=== PATIENT | female | born 1965 | race Caucasian/White ===

== ENCOUNTER 2019-04-04 07:25 | Observation (INO) | payer OTHER ==
[~2019-04-04] VITALS: Ht 165.1 cm; Wt 80.7 kg
[2019-04-04] MEDS ORDERED: SODIUM CHLORIDE 0.9% 1000ML 1,000 ML IV STA (07:26)
[2019-04-04] MEDS ORDERED: CYCLOBENZAPRINE5 MG PO (07:37)
[2019-04-04] MEDS ORDERED: HYDROCHLOROTH12.5 M1 PO (07:37)
[2019-04-04] MEDS ORDERED: ROSUVASTATIN CA20 MG PO (07:37)
[2019-04-04] MEDS ORDERED: CITALOPRAM HBR40 MG PO (07:37)
[2019-04-04] MEDS ORDERED: GABAPENTIN600 MG PO (07:37)
[2019-04-04 07:55] LABS: BASOPHILS # (AUTO) 0.1 (0.0-0.1); BASOPHILS % 0.8 % (0.0-1.0); EOSINOPHILS # (AUTO) 0.2 (0.0-0.4); EOSINOPHILS % 2.7 % (0.0-6.0); HEMATOCRIT 41.2 % (34.2-44.1); HEMOGLOBIN 13.6 g/dL (12.0-16.0); LYMPHOCYTES # (AUTO) 3.1 (1.0-3.2); LYMPHOCYTES % 39.8 % (18.0-39.1); MEAN CORPUSCULAR HEMOGLOBIN 30.4 pg (28-32); MEAN CORPUSCULAR VOLUME 92.2 fL (81-99); MONOCYTES # (AUTO) 0.7 (0.2-0.8); MONOCYTES % 8.5 % (4.4-11.3); NEUTROPHILS # (AUTO) 3.7 (2.1-6.9); NEUTROPHILS % 48.1 % (38.7-80.0); PLATELET COUNT 286 x10e3/uL (140-360); RED BLOOD COUNT 4.47 x10e6/uL (3.6-5.1); RED CELL DISTRIBUTION WIDTH 12.8 % (11.7-14.4)
[2019-04-04 07:58] LABS: BILIRUBIN,URINE NEGATIVE (NEGATIVE); CLARITY,URINE CLEAR (CLEAR); COLOR,URINE YELLOW (YELLOW); KETONES,URINE NEGATIVE (NEGATIVE); LEUKOCYTE ESTERASE ,URINE NEGATIVE (NEGATIVE); NITRITE,URINE NEGATIVE (NEGATIVE); PROTEIN,URINE DIPSTICK NEGATIVE (NEGATIVE); URINE UROBILINOGEN 0.2 mg/dL (0.2 - 1)
[2019-04-04] MEDS ORDERED: KETOROLAC TROMETHAMINE 30 MG/ML VIAL IV ONE (08:00)
[2019-04-04] MEDS ORDERED: ONDANSETRON HCL INJ 2MG/ML 2ML 2 MG/ML VIAL IV ONE (08:00)
[2019-04-04 08:11] LABS: BACTERIA,URINE FEW /HPF; EPITHELIAL CELLS,URINE FEW /LPF; RBC,URINE 0-5 /HPF (0-5)
[2019-04-04 08:25] LABS: ALBUMIN 4.1 g/dL (3.5-5.0); ALBUMIN/GLOBULIN RATIO 1.5 (0.8-2.0); ANION GAP 13.5 mmol/L (8-16); CALCIUM 9.6 mg/dL (8.4-10.2); CREATININE, SERUM 0.97 mg/dL (0.57-1.11); POTASSIUM 3.5 mmol/L (3.5-5.1)
--- NOTE | 2019-04-04 09:12 | Diagnostic Imaging Report ---
EXAM: CT Abdomen and Pelvis WITHOUT intravenous contrast INDICATION: Flank pain COMPARISON: None. TECHNIQUE: Abdomen and pelvis were scanned utilizing a multidetector helical scanner from the lung base to the pubic symphysis without administration of IV contrast. Coronal and sagittal reformations were obtained. IV CONTRAST: None ORAL CONTRAST: Water COMPLICATIONS: None RADIATION DOSE: Total DLP: 425.5 mGy*cm Dose modulation, iterative reconstruction, and/or weight based adjustment of the mA/kV was utilized to reduce the radiation dose to as low as reasonably achievable. FINDINGS: LOWER THORAX: Mild dependent bibasilar subsegmental atelectasis. HEPATOBILIARY: Diffuse hepatic steatosis. Nonspecific hypodense lesion at the hepatic dome (series 3 image 4) is indeterminate but likely represents a cyst. No other focal liver lesions. Status post cholecystectomy. SPLEEN: No splenomegaly. PANCREAS: No focal masses or ductal dilatation. ADRENALS: No adrenal nodules. KIDNEYS/URETERS: Multiple nonobstructive renal calculi at the right kidney lower pole measure up to 4 mm. 2 mm left lower pole nonobstructive renal calculus. No hydronephrosis or hydroureter. No ureteral calculi. A 1.7 cm exophytic posterior left lower pole renal lesion is indeterminate by attenuation on this noncontrast study (25HU). PELVIC ORGANS/BLADDER: Status post hysterectomy. PERITONEUM / RETROPERITONEUM: No free air or fluid. LYMPH NODES: No lymphadenopathy. VESSELS: Unremarkable. GI TRACT: Mild diverticulosis. No CT evidence of diverticulitis. No abnormal bowel thickening. No bowel obstruction. Normal appendix. BONES AND SOFT TISSUES: No acute osseous injury. No suspicious lytic or blastic lesions. IMPRESSION: Multiple nonobstructive right renal calculi measuring up to 4 mm. 2 mm left lower pole nonobstructive renal callus. No hydronephrosis or hydroureter. 1.7 cm exophytic posterior left lower pole renal mass is indeterminate by attenuation. Recommend follow-up renal mass CT or ultrasound on a nonurgent basis for further evaluation. Diffuse hepatic steatosis. Signed by: Butch Tse MD on 04/04/2019 9:08 AM
[2019-04-04] MEDS ORDERED: ONDANSETRON HCL INJ 2MG/ML 2ML 2 MG/ML VIAL IV PRN (09:45)
[2019-04-04] MEDS ORDERED: IBUPROFEN 800 MG/200 ML IV PRN (09:45)
--- OUTSIDE RECORDS SUMMARY | 2019-04-04 10:06 | XMS REPORT ---
Author Author [facility] Address Unknown Phone Unavailable Care Team Providers Care Entry Level Marketing Assistant Name Role Phone Villa THIBODEAUX Unavailable Unavailable Problems This patient has no known problems. Allergies, Adverse Reactions, Alerts This patient has no known allergies or adverse reactions. Medications This patient has no known medications. Results Test Description Test Time Test Comments Text Results Atomic Results Result Comments CT ABDOMEN/PELVIS WO 2019-04-04 09:00:00 [place] [address] Patient Name: CAITLIN AG MR #: [id number] : 1965 Age/Sex: 54/F Req #: [id number] Adm Physician: Ordered by: NELLIE THIBODEAUX MD Report #: [id number] Location: ER Room/Bed: Procedure: [id number] CT/CT ABDOMEN/PELVIS WO Exam Date: Exam Time: REPORT STATUS: Signed EXAM: CT Abdomen and Pelvis WITHOUT intravenous contrast INDICATION: Flank pain COMPARISON: None. TECHNIQUE: Abdomen and pelvis were scanned utilizing a multidetector helical scanner from the lung base to the pubic symphysis without administration of IV contrast. Coronal and sagittal reformations were obtained. IV CONTRAST: None ORAL CONTRAST: Water COMPLICATIONS: None RADIATION DOSE: Total DLP: 425.5 mGy*cm Dose modulation, iterative reconstruction, and/or weight based adjustment of the mA/kV was utilized to reduce the radiation dose to as low as reasonably achievable. FINDINGS: LOWER THORAX: Mild dependent bibasilar subsegmental atelectasis. HEPATOBILIARY: Diffuse hepatic steatosis. Nonspecific hypodense lesion at the hepatic dome (series 3 image 4) is indeterminate but likely represents a cyst. No other focal liver lesions. Status post cholecystectomy. SPLEEN: No splenomegaly. PANCREAS: No focal masses or ductal dilatation. ADRENALS: No adrenal nodules. KIDNEYS/URETERS: Multiple nonobstructive renal calculi at the right kidney lower pole measure up to 4 mm. 2 mm left lower pole nonobstructive renal calculus. No hydronephrosis or hydroureter. No ureteral calculi. A 1.7 cm exophytic posterior left lower pole renal lesion is indeterminate by attenuation on this noncontrast study (25HU). PELVIC ORGANS/BLADDER: Status post hysterectomy. PERITONEUM / RETROPERITONEUM: No free air or fluid. LYMPH NODES: No lymphadenopathy. VESSELS: Unremarkable. GI TRACT: Mild diverticulosis. No CT evidence of diverticulitis. No abnormal bowel t hickening. No bowel obstruction. Normal appendix. BONES AND SOFT TISSUES: No acute osseous injury. No suspicious lytic or blastic lesions. IMPRESSION: Multiple nonobstructive right renal calculi measuring up to 4 mm. 2 mm left lower pole nonobstructive renal callus. No hydronephrosis or hydroureter. 1.7 cm exophytic posterior left lower pole renal mass is indeterminate by attenuation. Recommend follow-up renal mass CT or ultrasound on a nonurgent basis for further evaluation. Diffuse hepatic steatosis. Signed by: Jeffrey Dow MD on 04/04/2019 9:08 AM Dictated By: JEFFREY DOW MD 7 Transcribed By: YARED on 04/04/19907 COPY TO: NELLIE THIBODEAUX MD
--- OUTSIDE RECORDS SUMMARY | 2019-04-04 10:06 | XMS REPORT | Summary of Care ---
Author Author [facility] Organization [facility] Address Unknown Phone Unavailable Care Team Providers Care Coppersmith Helper Name Role Phone Nayla Gardner DO PCP Encounter Details Care Team Description Date Type Department Doctor Unassigned, [place] [address] [place] [address] 11/21/2018 Orders Only [address] [address] Allergies Comments Active Allergy Reactions Severity Noted Date Codeine Hives, Nausea 01/13/2013 and/or Vomiting Sulfa (Sulfonamide Hives 01/13/2013 Antibiotics) documented as of this encounter (statuses as of 12/05/2018) Medications End Date Status Medication Sig Dispensed Refills Start Date Active traMADOL (ULTRAM) 50 mg Take 1-2 90 tablet 0 tabletIndications: tablets by 8 Fibromyalgia, Other mouth every 6 chronic pain (six) hours as needed for Pain unrelieved by non-narcotic analgesics. Active CITALOPRAM 40 mg TAKE ONE 30 tablet 11 tabletIndications: TABLET BY 8 Lumbosacral MOUTH DAILY radiculopathy, Depression Active GABAPENTIN 300 mg TAKE ONE TO 180 capsule 5 capsuleIndications: TWO CAPSULES 8 Fibromyalgia BY MOUTH THREE TIMES DAILY Active tamsulosin 0.4 mg 24 hr Take 1 30 capsule 0 capsuleIndications: capsule by 9 Dysuria mouth daily. Active ketorolac 10 mg Take 1 tablet 20 tablet 0 tabletIndications: Flank by mouth 9 pain, Kidney stone every 6 (six) hours as needed for Pain (scale 7-10) for up to 20 doses. Active proMETHazine 25 mg Take 1 tablet 12 tablet 0 tabletIndications: Flank by mouth 9 pain, Kidney stone every 6 (six) hours as needed for Nausea and Vomiting (N/V). documented as of this encounter (statuses as of 12/05/2018) Active Problems Problem Noted Date Right ureteral stone 08/16/2018 Overview: Added automatically from request for surgery [id number] Immunization counseling 08/21/2017 ALT (SGPT) level raised 08/21/2017 Hyperlipidemia LDL goal <100 07/31/2017 IBS (irritable bowel syndrome) 07/28/2015 HLD (hyperlipidemia) 02/02/2013 Overview: ICD10 Diagnosis Term [employer] Fibromyalgia 01/13/2013 Preventive measure 01/13/2013 Overview: Mammo/DEXA and pap done with Dr. Mehnaz Merlos [phone] Vitamin B12 deficiency 01/13/2013 Vitamin D deficiency 01/13/2013 Family disruption 01/13/2013 History of hypoglycemia 01/13/2013 History of diabetes mellitus, type II 01/13/2013 documented as of this encounter (statuses as of 12/05/2018) Social History Date Tobacco Use Types Packs/Day Years Used Quit: 02/27/2000 Former Smoker Smokeless Tobacco: Never Used Drinks/Week oz/Week Comments Alcohol Use social Yes Sex Assigned at Date Recorded Not on file Industry Job Start Date Occupation Not on file Not on file Not on file Travel End Travel History Travel Start No recent travel history available. documented as of this encounter Last Filed Vital Signs Not on filedocumented in this encounter Plan of Treatment Health Maintenance Due Date Last Done Comments DTaP,Tdap,and Td Vaccines 1985 (1 - Tdap) PAP SMEAR 1987 MAMMOGRAM 2006 COLONOSCOPY 2016 Zoster Recombinant 2016 Vaccine (SHINGRIX) (1 of 2) INFLUENZA VACCINE 01/05/2019 03/06/2016 (Previously completed) PNEUMOCOCCAL 0-64 YEARS Aged Out No longer eligible based COMBINED SERIES on patient's age to complete this topic documented as of this encounter Procedures Comments Procedure Name Priority Date/Time Associated Diagnosis AUTHORIZATION FOR RELEASE Routine 11/21/2018 OF PHI 12:01 AM CDT documented in this encounter Results Not on filedocumented in this encounter Insurance Type Payer Benefit Subscriber ID Effective Phone Address Plan / Dates Group HMO/PPO/POS [facility] [id number] 2013-P HEALTHCARE resent PPO documented as of this encounter
[2019-04-04] MEDS ORDERED: CEFTRIAXONE SOD 1 GM/NS 50 ML 50 ML IV ONE (10:30)
--- NOTE | 2019-04-04 11:28 | NUR ---
Received patient and a/ox3, pleasant female admitted for c/o back pain and history of kidney stones, IV line in place and fluids running, IV abx, running, minimal pain 4/10 at this time and no resp distress, call light within reach and will monitor.
[2019-04-04 11:29] VITALS: BP 109/67
[2019-04-04 11:31] VITALS: BP 119/59
--- NOTE | 2019-04-04 11:53 | NUR ---
Patient signed consent for procedure at this time
[2019-04-04] MEDS: SODIUM CHLORIDE 0.9% 1000ML 1,000 ML IV SCH (11:58)
--- NOTE | 2019-04-04 12:18 | NUR ---
Patient picked up at this time for procedure
[2019-04-04] MEDS ORDERED: TRAMADOL HCL 50 MG TAB PO PRN (13:00)
--- NOTE | 2019-04-04 13:50 | NUR ---
Patient returned from procedure, mild bruising to lower left back, will strain urine at this time, and will monitor.
--- NOTE | 2019-04-04 14:25 | NUR ---
Orders per Dr. Morel for Large Volume paracentesis, IR consult.
[2019-04-04] MEDS ORDERED: ONDANSETRON HCL INJ 2MG/ML 2ML 2 MG/ML VIAL ONE (14:45)
[2019-04-04] MEDS ORDERED: DEXAMETHASONE SOD PHOS INJ 4 MG/ML VIAL ONE (14:45)
[2019-04-04] MEDS ORDERED: LIDOCAINE HCL 2% LOCAL INJ 5 ML SDV VIAL INJ ONE (14:45)
[2019-04-04] MEDS ORDERED: EPHEDRINE SULFATE INJ 50 MG/10 ML SYR ONE (14:45)
[2019-04-04] MEDS ORDERED: PROPOFOL IV EMULSION 10 MG/ML 20 ML VIAL ONE (14:45)
[2019-04-04 16:00] VITALS: BP 106/57
--- NOTE | 2019-04-04 16:00 | Diagnostic Imaging Report ---
EXAM: Renal Ultrasound INDICATION: ^EVALUATE LEFT RENAL MASS NOTED ON CT. ^[id number] ^[id number] COMPARISON: None TECHNIQUE: Transverse and longitudinal images of the kidneys and bladder were obtained. FINDINGS: Right Kidney: Length: 10.6 cm Appearance: Increased echogenicity. Collecting system: No hydronephrosis Stones: 9.6 mm mid pole shadowing calculus. Cyst/Mass: Mid pole anechoic 1.0 x 0.8 x 1.5 cm simple cyst. Left Kidney: Length: 9.4 cm Appearance : Increased echogenicity. Collecting system: No hydronephrosis Stones: None Cyst/Mass: Lower pole cysts with internal septation measure up to 1.6 and 1.7 cm. Bladder: No mass or calculi. Bilateral ureteral jets visualized. Prevoid volume estimate of 203 cc. IMPRESSION: Right midpole 9.6 mm calculus. No right or left hydronephrosis. Increased echogenicity of both kidneys, compatible with medical renal disease. Left lower pole cysts measuring 1.7 and 1.6 cm with internal septation (Bosniak 2). Right midpole anechoic simple cyst. Signed by: Butch Tse MD on 04/04/2019 3:57 PM
--- NOTE | 2019-04-04 16:56 | NUR ---
Patient a/ox3, OOB and ambulating, straining urine, no resp distress, no c/o pains, will monitor.
--- NOTE | 2019-04-04 18:00 | NUR ---
PT TO THE FLOOR WITH VITALS WNL. PT DENIES NEEDS AT THIS TIME.
--- NOTE | 2019-04-04 19:10 | NUR ---
Patient visited in room during nursing rounds. Patient alert and oriented x3. Ambulatory in room prn. S/P Cystoscopy today. Pt c/o having headaches and requesting for pain med. On IVF (NS at 100ml/hr). Call alanis within reach. Will monitor closely.
[2019-04-04] MEDS ORDERED: FENTANYL CITRATE/PF 100MCG/2 ML INJ ONE (19:38)
[2019-04-04] MEDS ORDERED: MIDAZOLAM HCL 2 MG/2 ML VIAL ONE (19:38)
[2019-04-04 20:09] VITALS: BP 101/95
[2019-04-04 23:41] VITALS: BP 94/50
[2019-04-05] MEDS: SODIUM CHLORIDE 0.9% 1000ML 1,000 ML IV SCH (00:29)
[2019-04-05 04:41] VITALS: BP 100/51
[2019-04-05 05:40] LABS: BASOPHILS % 0.1 % (0.0-1.0); HEMATOCRIT 37.3 % (34.2-44.1); HEMOGLOBIN 12.2 g/dL (12.0-16.0); LYMPHOCYTES # (AUTO) 1.7 (1.0-3.2); LYMPHOCYTES % 17.9 % (18.0-39.1); MEAN CORPUSCULAR HEMOGLOBIN 30.2 pg (28-32); MEAN CORPUSCULAR HGB CONC 32.7 g/dL (31-35); MEAN CORPUSCULAR VOLUME 92.3 fL (81-99); MONOCYTES # (AUTO) 0.7 (0.2-0.8); MONOCYTES % 7.6 % (4.4-11.3); NEUTROPHILS # (AUTO) 6.9 (2.1-6.9); PLATELET COUNT 240 x10e3/uL (140-360); RED BLOOD COUNT 4.04 x10e6/uL (3.6-5.1); RED CELL DISTRIBUTION WIDTH 12.7 % (11.7-14.4)
[2019-04-05 06:02] LABS: ANION GAP 11.8 mmol/L (8-16); BLOOD UREA NITROGEN 13 mg/dL (7-26); BUN/CREATININE RATIO 17 (6-25); CALCIUM 8.8 mg/dL (8.4-10.2); CARBON DIOXIDE 25 mmol/L (22-29); CHLORIDE 107 mmol/L (98-107); CREATININE, SERUM 0.75 mg/dL (0.57-1.11); EST GLOMERULAR FILTRATION RATE > 60 ML/MIN (60-); GLUCOSE 112 mg/dL (74-118); POTASSIUM 3.8 mmol/L (3.5-5.1); SODIUM 140 mmol/L (136-145)
--- NOTE | 2019-04-05 07:27 | NUR ---
PATIENT IN BED WITH HEAD ELEVATED WATCHING TV, NO DISTRESS NOTED. IV FLUID INFUSING ORDERED. BED IN LOWER POSITION, CALL LIGHT AT REACH.
[2019-04-05 08:29] VITALS: BP 98/64
--- NOTE | 2019-04-05 11:39 | NUR ---
PATIENT SITTING AT BED TALKING TO FAMILY MEMBER VISITING, NO COMPLAIN VOICED. CALL LIGHT AT EASY REACH.
[2019-04-05 12:15] VITALS: BP 98/58
--- NOTE | 2019-04-05 15:38 | NUR ---
PATIENT AMBULATING IN HALLWAY BY SELF. NO DISTRESS NOTED. WILL CONTINUE TO MONITOR.
[2019-04-05 16:17] VITALS: BP 104/55
[2019-04-05] MEDS ORDERED: ULTRAM50 MG PO (16:43)
--- NOTE | 2019-04-05 17:05 | NUR ---
PATIENT DISCHARGED HOME. DISCHARGE INSTRUCTIONS, PRESCRIPTION, AND FOLLOW UP GIVEN TO PATIENT. SHE VERBALIZED UNDERSTANDING. IV TO RIGHT AC REMOVED WITH TIP INTACT. ALL PERSONAL ITEMS TAKEN WITH PATIENT. REFUSED WHEEL CHAIR, BUT WAS ACCOMPANIED TO FRONT LOBBY BY HOSPITAL STAFF IN STABLE CONDITION.
--- NOTE | 2019-06-17 03:36 | Operative Report ---
DATE OF PROCEDURE: 04/04/2019 SURGEON: James Aldana MD PREOPERATIVE DIAGNOSIS: Right nephrolithiasis. POSTOPERATIVE DIAGNOSIS: Right nephrolithiasis. OPERATIONS PERFORMED: 1. Staged right-sided extracorporeal shockwave lithotripsy. 2. Supervision of fluoroscopy, no radiologist present. ANESTHESIA: General. COMPLICATIONS: None. CLINICAL SUMMARY: Shi Arvizu is a 54-year-old woman with nephrolithiasis. She is brought for lithotripsy. She is aware of the risks of bleeding, infection, injury to adjacent structures, need for additional procedures and elected to proceed. OPERATIVE PROCEDURE IN DETAIL: Informed consent was verified Shi Arvizu was properly identified taken to the operating room, placed on the lithotripsy table in supine position. Anesthesia was uneventfully begun. The patient's right nephrolithiasis was localized with biplanar fluoroscopy. A total of 3000 shocks were delivered, distributing them between all the stones that we were able to visualize. Fragmentation was noted. The patient was then uneventfully reversed from anesthesia and taken to recovery room in stable condition. There were no complications to the procedure. She tolerated the procedure well. Explicit postop instructions were given. Follow the patient up in the office. Plans will also include to admit the patient for observation to ensure adequate pain control postoperatively. James Aldana MD [place]/MODL /[id number] cc: James Aldana MD
== END 2019-04-05 17:00 | disposition home or self-care (01) ==
LOC: ER 07:25 → ERHOLD 09:42 → MED/SURG3 11:00 → MED/SURG 17:22
PROVIDERS: ADMIT Internal Medicine; ATTEND Internal Medicine
DX: N20.0 Calculus of kidney (principal); Z87.442 Personal history of urinary calculi; N30.00 Acute cystitis without hematuria; Z88.5 Allergy status to narcotic agent; Z88.2 Allergy status to sulfonamides; Z80.51 Family history of malignant neoplasm of kidney; B95.2 Enterococcus as the cause of diseases classified elsewhere; R82.81 Pyuria; K76.0 Fatty (change of) liver, not elsewhere classified; G47.33 Obstructive sleep apnea (adult) (pediatric); E78.5 Hyperlipidemia, unspecified; M79.7 Fibromyalgia; E66.9 Obesity, unspecified; Z68.29 Body mass index [BMI] 29.0-29.9, adult
CPT/HCPCS: 36415 ×2; 50590; 74176; 76770; 80048; 80053; 81001; 83970; 84550; 85025 ×2; 87086; 87186; 99284; G0378 ×2; J0696; J1100; J1885; J2001; J2250; J2405; J2704; J3010; J7030 ×2

== ENCOUNTER → 2019-10-14 | Outpatient (CLI) | payer OTHER ==
[~2019-10-14] MED LIST: CITALOPRAM HBR40 MG PO; CYCLOBENZAPRINE5 MG PO; GABAPENTIN600 MG PO; HYDROCHLOROTH12.5 M1 PO; ROSUVASTATIN CA20 MG PO; ULTRAM50 MG PO
--- NOTE | 2019-10-14 08:39 | Diagnostic Imaging Report ---
Abdomen, 1 view. History: History of kidney stones. Comparison: CT 04/04/2019. Findings: Air is scattered throughout nondilated small and large bowel. Tiny faint hyperdensities are projected over the right kidney. Surgical clips are noted in the right upper quadrant. The osseous structures are intact. IMPRESSION: Non-specific bowel gas pattern. Small barely visible right renal calculi. Signed by: Young Martinez on 10/14/2019 8:36 AM
== END ==
LOC: RAD 07:55
PROVIDERS: ATTEND Urology
DX: N20.0 Calculus of kidney (principal)
CPT/HCPCS: 74018

== ENCOUNTER → 2020-02-09 | Outpatient (CLI) | payer OTHER | LOC: RAD 08:11 | PROVIDERS: ATTEND Urology | DX: N20.0 Calculus of kidney (principal) | CPT/HCPCS: 74018 ==

== ENCOUNTER 2020-07-05 05:37 | Emergency (ER) | payer OTHER ==
[~2020-07-05] VITALS: Ht 165.1 cm; Wt 90.7 kg
[2020-07-05] MEDS ORDERED: KETOROLAC TROMETHAMINE 30 MG/ML VIAL IV STA (05:56)
[2020-07-05] MEDS ORDERED: SODIUM CHLORIDE 0.9% 1000ML 1,000 ML IV STA (05:56)
[2020-07-05] MEDS ORDERED: ONDANSETRON HCL INJ 2MG/ML 2ML 2 MG/ML VIAL IV STA (05:56)
[2020-07-05] MEDS ORDERED: MORPHINE SULFATE INJ 4 MG/ML INJ 1ML IV STA (06:01)
[2020-07-05 06:34] LABS: BASOPHILS % 0.3 % (0.0-1.0); HEMATOCRIT 41.5 % (34.2-44.1); HEMOGLOBIN 13.7 g/dL (12.0-16.0); LYMPHOCYTES # (AUTO) 1.2 (1.0-3.2); LYMPHOCYTES % 9.2 % (18.0-39.1); MEAN CORPUSCULAR HEMOGLOBIN 29.9 pg (28-32); MEAN CORPUSCULAR VOLUME 90.6 fL (81-99); MONOCYTES # (AUTO) 0.6 (0.2-0.8); MONOCYTES % 4.8 % (4.4-11.3); NEUTROPHILS % 85.4 % (38.7-80.0); PLATELET COUNT 311 x10e3/uL (140-360); RED BLOOD COUNT 4.58 x10e6/uL (3.6-5.1); RED CELL DISTRIBUTION WIDTH 12.7 % (11.7-14.4)
[2020-07-05 06:44] LABS: CLARITY,URINE CLEAR (CLEAR); COLOR,URINE YELLOW (YELLOW); LEUKOCYTE ESTERASE ,URINE NEGATIVE (NEGATIVE); NITRITE,URINE NEGATIVE (NEGATIVE); PROTEIN,URINE DIPSTICK NEGATIVE (NEGATIVE)
[2020-07-05 06:45] LABS: KETONES,URINE NEGATIVE (NEGATIVE); URINE UROBILINOGEN 0.2 mg/dL (0.2 - 1)
[2020-07-05 06:57] LABS: INR 0.86; PROTHROMBIN TIME 12.2 seconds (11.9-14.5)
[2020-07-05 06:58] LABS: PARTIAL THROMBOPLASTIN TIME 22.6 seconds (23.8-35.5)
[2020-07-05 07:04] LABS: BACTERIA,URINE RARE /HPF; EPITHELIAL CELLS,URINE FEW /LPF; WBC,URINE (MAN) 21-50 /HPF (0-5)
[2020-07-05 07:38] LABS: ALANINE AMINOTRANSFERASE 65 IU/L (0-55); ALBUMIN 4.3 g/dL (3.5-5.0); ALBUMIN/GLOBULIN RATIO 1.4 (0.8-2.0); ALKALINE PHOSPHATASE 99 IU/L (40-150); ANION GAP 17.7 mmol/L (8-16); BLOOD UREA NITROGEN 21 mg/dL (7-26); BUN/CREATININE RATIO 14 (6-25); CALCIUM 9.5 mg/dL (8.4-10.2); CARBON DIOXIDE 24 mmol/L (22-29); CHLORIDE 102 mmol/L (98-107); CREATINE KINASE 55 IU/L (29-168); CREATININE, SERUM 1.52 mg/dL (0.57-1.11); EST GLOMERULAR FILTRATION RATE 36 ML/MIN (60-); GLUCOSE 179 mg/dL (74-118); MAGNESIUM 1.9 MG/DL (1.3-2.1); POTASSIUM 3.7 mmol/L (3.5-5.1); SODIUM 140 mmol/L (136-145)
[2020-07-05] MEDS ORDERED: CEFTRIAXONE SOD 1 GM in SODIUM CHLORIDE 0.9% 50ML 50 ML IV ONE (08:30)
== END 2020-07-05 10:32 | disposition home or self-care (01) ==
LOC: ER 05:46
DX: M54.5 Low back pain (principal); N13.2 Hydronephrosis with renal and ureteral calculous obstruction; N39.0 Urinary tract infection, site not specified; R10.32 Left lower quadrant pain; E78.5 Hyperlipidemia, unspecified; M79.7 Fibromyalgia
CPT/HCPCS: 36415; 74176; 80053; 81001; 82550; 82553; 83735; 84484; 85025; 85610; 85730; 87086; 99284; J0696; J1885; J2270; J2405; J7030

== ENCOUNTER → 2021-02-02 | Outpatient (CLI) | payer OTHER | LOC: US 07:32 | PROVIDERS: ATTEND Urology | DX: N20.0 Calculus of kidney (principal); N28.1 Cyst of kidney, acquired | CPT/HCPCS: 74018; 76770; 76857 ==

== ENCOUNTER → 2023-11-26 | Outpatient (REF) | payer OTHER | LOC: CT 13:54 | PROVIDERS: ATTEND Family Medicine | DX: R10.9 Unspecified abdominal pain (principal); N20.0 Calculus of kidney | CPT/HCPCS: 74176 ==

== ENCOUNTER → 2024-04-02 | Outpatient (REF) | payer OTHER ==
[~2024-04-02] MED LIST changes: +GADOBENATE DIMEGLUMINE 1 ML IV ONE
== END ==
LOC: MRI 07:21
PROVIDERS: ATTEND Family Medicine
DX: R51.9 Headache, unspecified (principal); R20.2 Paresthesia of skin
CPT/HCPCS: 70553